=== PATIENT | female | born 1940 | race Two or more races ===

== ENCOUNTER 2017-08-20 13:43 | Outpatient (CLI) | payer OTHER | END 2017-08-20 15:38 | disposition home or self-care (01) | LOC: RAD 13:43 | DX: M25.461 Effusion, right knee (principal) ==

== ENCOUNTER 2017-08-21 08:33 | Outpatient (CLI) | payer OTHER | END 2017-08-21 14:22 | disposition home or self-care (01) | LOC: MRI 08:33 | DX: M17.11 Unilateral primary osteoarthritis, right knee (principal); D48.1 Neoplasm of uncertain behavior of connective and other soft tissue | CPT/HCPCS: 73722; A9579; 73721 ==

== ENCOUNTER → 2017-08-22 | Outpatient (CLI) | payer OTHER | END | disposition home or self-care (01) | LOC: LAB 08-21 09:30 | DX: D64.89 Other specified anemias (principal); D68.8 Other specified coagulation defects; N39.0 Urinary tract infection, site not specified; M06.4 Inflammatory polyarthropathy; E88.89 Other specified metabolic disorders ==

== ENCOUNTER 2018-06-25 08:39 | Outpatient (CLI) | payer OTHER | END 2018-06-25 09:20 | disposition home or self-care (01) | LOC: SONOGRAMA 08:39 | DX: C73 Malignant neoplasm of thyroid gland (principal); E89.0 Postprocedural hypothyroidism ==

== ENCOUNTER 2018-07-27 14:28 | Outpatient (CLI) | payer OTHER | END 2018-07-27 15:18 | disposition home or self-care (01) | LOC: RAD 14:28 | DX: M54.5 Low back pain (principal) ==

== ENCOUNTER 2018-10-01 12:31 | Outpatient (CLI) | payer OTHER | END 2018-10-01 13:54 | disposition home or self-care (01) | LOC: MAMO-SONO 12:31 | DX: Z12.31 Encounter for screening mammogram for malignant neoplasm of breast (principal); Z87.898 Personal history of other specified conditions; N60.11 Diffuse cystic mastopathy of right breast; N60.12 Diffuse cystic mastopathy of left breast; M81.0 Age-related osteoporosis without current pathological fracture ==

== ENCOUNTER 2019-10-25 09:15 | Outpatient (CLI) | payer OTHER | END 2019-10-25 10:00 | disposition home or self-care (01) | LOC: SONOGRAMA 09:15 | DX: C73 Malignant neoplasm of thyroid gland (principal); E89.0 Postprocedural hypothyroidism ==

== ENCOUNTER 2020-01-12 09:54 | Outpatient (CLI) | payer OTHER | END 2020-01-12 15:00 | disposition home or self-care (01) | LOC: LAB 09:54 | PROVIDERS: ATTEND Radiology Diagnostic Radiology | DX: Z20.828 Contact with and (suspected) exposure to other viral communicable diseases (principal); Z03.818 Encounter for observation for suspected exposure to other biological agents ruled out ==

== ENCOUNTER 2020-05-02 08:00 | Outpatient (CLI) | payer OTHER | END 2020-05-02 15:00 | disposition home or self-care (01) | LOC: PPH VACUNA 08:00 | DX: Z23 Encounter for immunization (principal) | CPT/HCPCS: 90688; G0008 ==

== ENCOUNTER 2020-06-02 07:14 | Outpatient (CLI) | payer OTHER | END 2020-06-02 07:31 | disposition home or self-care (01) | LOC: NUCLEAR 07:14 | PROVIDERS: ATTEND Internal Medicine Cardiovascular Disease | DX: I20.9 Angina pectoris, unspecified (principal) | CPT/HCPCS: 78452; 93017; A9500 ==

== ENCOUNTER 2020-07-04 10:28 | Outpatient (CLI) | payer OTHER | END 2020-07-04 15:00 | disposition home or self-care (01) | LOC: LAB 10:28 | PROVIDERS: ATTEND Radiology Diagnostic Radiology | DX: Z20.828 Contact with and (suspected) exposure to other viral communicable diseases (principal) ==

== ENCOUNTER → 2020-08-18 | Outpatient (CLI) | payer OTHER | END | disposition home or self-care (01) | LOC: PPH VACUNA 01:35 | PROVIDERS: ATTEND Emergency Medicine Pediatric Emergency Medicine | DX: Z23 Encounter for immunization (principal) ==

== ENCOUNTER → 2020-09-19 | Outpatient (CLI) | payer OTHER | END | disposition home or self-care (01) | LOC: RAD 10:39 | PROVIDERS: ATTEND Radiology Diagnostic Radiology | DX: M41.87 Other forms of scoliosis, lumbosacral region (principal); M54.5 Low back pain ==

== ENCOUNTER → 2021-01-30 | Outpatient (CLI) | payer OTHER | END | disposition home or self-care (01) | LOC: RAD 12:50 | PROVIDERS: ATTEND Radiology Diagnostic Radiology | DX: M25.532 Pain in left wrist (principal); M25.531 Pain in right wrist ==

== ENCOUNTER 2021-03-20 11:35 | Outpatient (CLI) | payer OTHER | END 2021-03-20 11:40 | disposition home or self-care (01) | LOC: SONOGRAMA 11:35 | DX: E89.0 Postprocedural hypothyroidism (principal); C73 Malignant neoplasm of thyroid gland ==

== ENCOUNTER 2021-04-04 08:00 | Outpatient (CLI) | payer OTHER | END 2021-04-04 08:30 | disposition home or self-care (01) | LOC: PPH VACUNA 08:00 | DX: Z23 Encounter for immunization (principal) ==

== ENCOUNTER 2021-05-07 08:00 | Outpatient (CLI) | payer OTHER | END 2021-05-07 08:30 | disposition home or self-care (01) | LOC: PPH VACUNA 08:00 | PROVIDERS: ATTEND Emergency Medicine Pediatric Emergency Medicine | DX: Z23 Encounter for immunization (principal) ==

== ENCOUNTER 2021-09-25 11:39 | Outpatient (CLI) | payer OTHER | END 2021-09-25 13:36 | disposition home or self-care (01) | LOC: RAD 11:39 | PROVIDERS: ATTEND Radiology Diagnostic Radiology | DX: S89.91XA Unspecified injury of right lower leg, initial encounter (principal) ==

== ENCOUNTER 2021-12-14 08:00 | Outpatient (CLI) | payer OTHER | END 2021-12-14 08:30 | disposition home or self-care (01) | LOC: PPH VACUNA 08:00 | PROVIDERS: ATTEND Emergency Medicine Pediatric Emergency Medicine | DX: Z23 Encounter for immunization (principal); Z71.85 Encounter for immunization safety counseling ==

== ENCOUNTER 2022-04-12 12:39 | Outpatient (CLI) | payer OTHER | END 2022-04-12 13:00 | disposition home or self-care (01) | LOC: RAD 12:39 | PROVIDERS: ATTEND Radiology Diagnostic Radiology | DX: M25.561 Pain in right knee (principal) ==

== ENCOUNTER 2022-05-16 11:34 | Outpatient (CLI) | payer OTHER | END 2022-05-16 11:44 | disposition home or self-care (01) | LOC: PPH VACUNA 11:34 | PROVIDERS: ATTEND Emergency Medicine Pediatric Emergency Medicine | DX: Z23 Encounter for immunization (principal) ==

== ENCOUNTER 2022-05-17 11:26 | Outpatient (CLI) | payer OTHER | END 2022-05-17 11:33 | disposition home or self-care (01) | LOC: PPH VACUNA 11:26 | PROVIDERS: ATTEND Emergency Medicine Pediatric Emergency Medicine | DX: Z23 Encounter for immunization (principal) | CPT/HCPCS: 90686; G0008 ==

== ENCOUNTER 2022-05-25 08:34 | Outpatient (CLI) | payer OTHER | END 2022-05-25 08:50 | disposition home or self-care (01) | LOC: LAB 08:34 | PROVIDERS: ATTEND Orthopaedic Surgery | DX: E55.9 Vitamin D deficiency, unspecified (principal); M85.9 Disorder of bone density and structure, unspecified; E56.1 Deficiency of vitamin K; E21.3 Hyperparathyroidism, unspecified; M81.8 Other osteoporosis without current pathological fracture ==

== ENCOUNTER 2022-05-31 13:30 | Outpatient (CLI) | payer OTHER | END 2022-05-31 13:33 | disposition home or self-care (01) | LOC: NUCLEAR 13:30 | PROVIDERS: ATTEND Orthopaedic Surgery | DX: M81.0 Age-related osteoporosis without current pathological fracture (principal) ==

== ENCOUNTER 2022-09-25 09:58 | Outpatient (CLI) | payer OTHER | END 2022-09-25 10:10 | disposition home or self-care (01) | LOC: MAMO-SONO 09:58 | DX: Z12.31 Encounter for screening mammogram for malignant neoplasm of breast (principal); N60.11 Diffuse cystic mastopathy of right breast; C73 Malignant neoplasm of thyroid gland; E89.0 Postprocedural hypothyroidism ==

== ENCOUNTER 2023-02-20 12:17 | Outpatient (CLI) | payer OTHER | END 2023-02-20 12:30 | disposition home or self-care (01) | LOC: RAD 12:17 | PROVIDERS: ATTEND Ophthalmology | DX: Z98.41 Cataract extraction status, right eye (principal); H25.011 Cortical age-related cataract, right eye ==

== ENCOUNTER 2023-02-20 12:37 | Outpatient (CLI) | payer OTHER | END 2023-02-20 12:39 | disposition home or self-care (01) | LOC: LAB 12:37 | PROVIDERS: ATTEND Ophthalmology | DX: D68.8 Other specified coagulation defects (principal); H25.013 Cortical age-related cataract, bilateral ==

== ENCOUNTER 2023-11-24 10:16 | Outpatient (CLI) | payer OTHER | END 2023-11-24 10:50 | disposition home or self-care (01) | LOC: MAMO-SONO 10:16 | PROVIDERS: ATTEND Internal Medicine | DX: Z12.31 Encounter for screening mammogram for malignant neoplasm of breast (principal); Z12.39 Encounter for other screening for malignant neoplasm of breast ==

== ENCOUNTER 2024-04-07 12:29 | Outpatient (CLI) | payer OTHER | END 2024-04-09 11:10 | disposition home or self-care (01) | LOC: SONOGRAMA 12:29 | DX: C73 Malignant neoplasm of thyroid gland (principal); E89.0 Postprocedural hypothyroidism ==

== ENCOUNTER 2024-06-08 12:54 | Outpatient (CLI) | payer OTHER | END 2024-06-08 12:55 | disposition home or self-care (01) | LOC: NUCLEAR 12:54 | PROVIDERS: ATTEND Orthopaedic Surgery | DX: M81.0 Age-related osteoporosis without current pathological fracture (principal) ==

== ENCOUNTER 2024-07-19 07:45 | Outpatient (CLI) | payer OTHER ==
[2024-07-19 09:01] LABS: HEMATOCRIT 33.8 % (36.0-45.00); HEMOGLOBIN 11.3 g/dL (12.0-15.00); MEAN CELL VOLUME 89.2 fL (80.00-100.00); MEAN CORPUSCULAR HEMOGLOBIN 29.9 pg (27.00-32.0); MEAN CORPUSCULAR HGB CONC 33.6 g/dl (32.0-36.0); PLATELET COUNT 160 K/uL (150-450); RED BLOOD COUNT 3.79 M/uL (4.00-6.00); RED CELL DISTRIBUTION WIDTH 14.2 % (11.5-14.5)
[2024-07-19 10:02] LABS: ALBUMIN 3.6 gm/dL (3.4-5.0); BILIRUBIN TOTAL 0.37 mg/dL (0.3-1.2); CALCIUM 9.2 mg/dL (8.5-10.1); CREATININE SERUM 0.7 mg/dL (0.55-1.02); GFR 80.31; GLOBULINA 3.6 G/DL (2.4-3.5); MAGNESIUM 2.3 mg/dL (1.8-2.4); PHOSPHOROUS 2.5 mg/dL (2.5-4.9); POTASSIUM 4.08 mEq/L (3.5-5.1); TOTAL PROTEIN 7.2 gm/dL (6.4-8.2)
[2024-07-20 14:44] LABS: CALCIUM IONIZED 5.2 mg/dL (4.5-5.6)
== END 2024-07-19 07:58 | disposition home or self-care (01) ==
LOC: LAB 07:45
PROVIDERS: ATTEND Orthopaedic Surgery
DX: E55.9 Vitamin D deficiency, unspecified (principal); M85.9 Disorder of bone density and structure, unspecified; E56.1 Deficiency of vitamin K; E21.3 Hyperparathyroidism, unspecified; E88.89 Other specified metabolic disorders; M81.8 Other osteoporosis without current pathological fracture; D64.9 Anemia, unspecified

== ENCOUNTER → 2025-02-07 | Outpatient (CLI) | payer OTHER | END | disposition home or self-care (01) | LOC: RAD 09:20 | PROVIDERS: ATTEND Internal Medicine Pulmonary Disease | DX: R06.02 Shortness of breath (principal); R05.3 Chronic cough ==

== ENCOUNTER 2025-02-14 07:32 | Outpatient (CLI) | payer OTHER | END 2025-02-14 07:33 | disposition home or self-care (01) | LOC: NUCLEAR 07:32 | PROVIDERS: ATTEND Internal Medicine Pulmonary Disease | DX: R91.1 Solitary pulmonary nodule (principal) | CPT/HCPCS: 78816; A9552 ==

== ENCOUNTER → 2025-03-24 | Outpatient (CLI) | payer OTHER | END | disposition home or self-care (01) | LOC: TOM 08:32 | PROVIDERS: ATTEND Internal Medicine Pulmonary Disease | DX: R91.1 Solitary pulmonary nodule (principal) ==

== ENCOUNTER 2025-04-14 07:37 | Outpatient (CLI) | payer OTHER ==
[~2025-04-14] VITALS: Ht 152.4 cm; Wt 70.3 kg
[2025-04-14 08:30] VITALS: BP 155/74; O2SAT 100
[2025-04-14 09:40] VITALS: BP 169/84; O2SAT 99
[2025-04-14 09:56] VITALS: BP 163/82; O2SAT 99
[2025-04-14 10:14] VITALS: BP 155/75; O2SAT 99
[2025-04-14 10:40] VITALS: BP 156/75; O2SAT 99
== END 2025-04-14 07:40 | disposition home or self-care (01) ==
LOC: TOM 07:37
PROVIDERS: ATTEND Internal Medicine Pulmonary Disease
DX: D14.31 Benign neoplasm of right bronchus and lung (principal); R91.1 Solitary pulmonary nodule

== ENCOUNTER 2025-05-12 11:28 | Outpatient (CLI) | payer OTHER | END 2025-05-18 08:18 | disposition home or self-care (01) | LOC: RAD 11:28 | PROVIDERS: ATTEND General Practice | DX: M54.41 Lumbago with sciatica, right side (principal); M87.150 Osteonecrosis due to drugs, pelvis ==

== ENCOUNTER 2025-07-12 12:59 | Outpatient (CLI) | payer OTHER | END 2025-07-12 13:01 | disposition home or self-care (01) | LOC: NUCLEAR 12:59 | PROVIDERS: ATTEND Orthopaedic Surgery | DX: M81.0 Age-related osteoporosis without current pathological fracture (principal) ==

== ENCOUNTER → 2025-08-08 09:22 | Outpatient (CLI) | payer OTHER ==
[2025-08-08 10:20] LABS: BASO % 0.5 % (0.1-1.2); EOS # 0.02 (0.04-0.54); EOS % 0.5 % (0.7-7.0); LYMPH # 1.31 (1.18-3.74); LYMPH % 33.6 % (19.3-53.1); MEAN PLATELET VOLUME 12.20 fl (9.4-12.4); MONO # 0.54 (0.24-0.82); NEUT # 2.00 (1.56-6.13); NEUT % 51.3 % (34.0-71.1); RED CELL DISTRIBUTION WIDTH 13.8 % (11.6-14.4)
[2025-08-08 10:25] LABS: MONO % 13.8 % (4.7-12.5)
== END | disposition home or self-care (01) ==
LOC: LAB 09:22
PROVIDERS: ATTEND Orthopaedic Surgery
DX: E55.9 Vitamin D deficiency, unspecified (principal); M85.9 Disorder of bone density and structure, unspecified; E56.1 Deficiency of vitamin K